=== PATIENT | male | born 1965 | race African-American/Black ===

== ENCOUNTER 2020-08-22 12:42 | Emergency (ER) | payer OTHER ==
[~2020-08-22] VITALS: Ht 185.4 cm; Wt 97.7 kg
[2020-08-22 13:20] VITALS: BP 137/89
[2020-08-22] MEDS ORDERED: FLUORESCEIN OPHTH TEST STRIP. OD ONE (13:30)
[2020-08-22] MEDS ORDERED: TETRACAINE 0.5% OPHTH SOLUTION 4ML BOTTLE. OD ONE (13:30)
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
[2020-08-22] MEDS ORDERED: ERYT1OIN6 OP (13:54)
[2020-08-22] MEDS ORDERED: HYDR-2761 PO (13:54)
== END 2020-08-22 14:01 | disposition home or self-care (01) ==
LOC: ER 12:42
DX: S05.01XA Injury of conjunctiva and corneal abrasion without foreign body, right eye, initial encounter (principal); H53.8 Other visual disturbances; F31.9 Bipolar disorder, unspecified; F20.9 Schizophrenia, unspecified; F17.200 Nicotine dependence, unspecified, uncomplicated; Z88.8 Allergy status to other drugs, medicaments and biological substances; Z98.890 Other specified postprocedural states; W18.09XA Striking against other object with subsequent fall, initial encounter; Y93.89 Activity, other specified; Y92.89 Other specified places as the place of occurrence of the external cause; Y99.8 Other external cause status
CPT/HCPCS: 99283

== ENCOUNTER 2020-08-28 10:47 | Emergency (ER) | payer SELFPAY ==
[~2020-08-28] VITALS: Ht 185.4 cm; Wt 99.9 kg
[~2020-08-28 10:47] MED LIST: ERYT1OIN6 OP; HYDR-2761 PO
[2020-08-28] MEDS ORDERED: TETRACAINE 0.5% OPHTH SOLUTION 4ML BOTTLE. OD ONE (13:45)
[2020-08-28] MEDS ORDERED: FLUORESCEIN OPHTH TEST STRIP. OD ONE (13:45)
[2020-08-28] MEDS ORDERED: HYDR-2761 PO (14:04)
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
[2020-08-28 14:10] VITALS: BP 167/90
== END 2020-08-28 14:11 | disposition home or self-care (01) ==
LOC: ER 10:47
DX: S05.01XA Injury of conjunctiva and corneal abrasion without foreign body, right eye, initial encounter (principal); F20.9 Schizophrenia, unspecified; F31.9 Bipolar disorder, unspecified; F17.210 Nicotine dependence, cigarettes, uncomplicated; Z98.890 Other specified postprocedural states; Z88.6 Allergy status to analgesic agent; Z88.8 Allergy status to other drugs, medicaments and biological substances; X58.XXXA Exposure to other specified factors, initial encounter; Y93.89 Activity, other specified; Y92.89 Other specified places as the place of occurrence of the external cause; Y99.8 Other external cause status
CPT/HCPCS: 99283